=== PATIENT | male | born 1935 | race Caucasian/White ===

== ENCOUNTER 2019-06-01 01:37 | Inpatient (IN) | payer MEDICARE, BC ==
[~2019-06-01] VITALS: Ht 175.3 cm; Wt 73.3 kg
[2019-06-01 01:44] VITALS: BP 140/54
[2019-06-01] MEDS ORDERED: ATENOLOL 50MG T50 M1 PO (01:55)
[2019-06-01] MEDS ORDERED: COLACE100 MG PO (01:56)
[2019-06-01] MEDS ORDERED: AUGMENTIN 875-1 EACH PO (01:56)
[2019-06-01] MEDS ORDERED: MAGOX 400400 MG PO (01:57)
[2019-06-01] MEDS ORDERED: HYDROCHLOROTHIA25 M2 PO (01:57)
[2019-06-01] MEDS ORDERED: PEPCID20 MG PO (01:57)
[2019-06-01] MEDS ORDERED: QUINAPRIL 20 MG20 MG PO (01:58)
[2019-06-01] MEDS ORDERED: MIRALAX17 GM PO (01:58)
[2019-06-01 02:31] LABS: ABSOLUTE BASOPHILS 0.2 thou/uL (0.0-0.2); ABSOLUTE EOSINOPHILS 0.2 thou/uL (0.0-0.7); ABSOLUTE LYMPHOCYTES 1.3 thou/uL (0.8-5.3); ABSOLUTE MONOCYTES 0.9 thou/uL (0.0-1.2); ABSOLUTE NEUTROPHILS 5.9 thou/uL (1.6-8.1); BASOPHILS 2.2 %; EOSINOPHILS 1.8 %; HEMATOCRIT 38.2 % (42.0-52.0); HEMOGLOBIN 12.8 gm/dL (14.0-18.0); LYMPHOCYTES 15.1 %; MCH 34.1 pg (26.0-34.0); MCHC 33.6 g/dL (28.0-37.0); MCV 101.7 fL (80.0-100.0); MONOCYTES 10.4 %; MPV 7.2 fl. (7.2-11.1); NUCLEATED RBCS 0 /100WBC; PLATELET COUNT* 366 thou/uL (150-400); POLYS 70.5 %; RBC 3.75 mil/uL (4.50-6.00); RDW-CV 13.4 % (10.5-14.5); WBC 8.4 thou/uL (4.0-11.0)
[2019-06-01 02:38] LABS: CALCIUM 9.2 mg/dL (8.5-10.1); CREATININE 1.1 mg/dL (0.6-1.3); POTASSIUM 3.9 mmol/L (3.5-5.1)
[2019-06-01 02:42] LABS: ALBUMIN 3.1 g/dL (3.4-5.0); TOTAL BILIRUBIN 0.8 mg/dL (<0.1-1.0); TOTAL PROTEIN 7.1 g/dL (6.4-8.2)
[2019-06-01 02:52] LABS: BE 0.8 mmol/L (-2 to +3); PCO2 34.6 mmHg (35.0-45.0); PO2 88.3 mmHg (75.0-100.0); pH 7.462 (7.340-7.450)
[2019-06-01 04:55] VITALS: BP 124/62
[2019-06-01 05:02] LABS: INR 1.1; PROTIME 11.4 Seconds (9.20-11.50)
[2019-06-01 07:40] LABS: AMMONIA < 10 umol/L (11-32); CALCIUM 9.4 mg/dL (8.5-10.1); MAGNESIUM 1.8 mg/dL (1.8-2.4); PHOSPHORUS* 4.4 mg/dL (2.5-4.9)
[2019-06-01 08:00] VITALS: BP 109/38
--- NOTE | 2019-06-01 08:15 | NUR ---
RECEIVED REPORT FROM [facility]CO IN ED. PT ARRIVED TO UNIT APPROX 0515. VERY CONFUSED. OREINTED TO SELF AND "HOSPITAL." PT UNABLE TO ANSWER QUESTIONS OR ANSWERS QUESTIONS WITH "I WANT WHISKEY." PT KEPT TAKING OFF MONITOR LEADS. BED ALARM ON. CALL LIGHT IN REACH.
[2019-06-01 11:37] VITALS: BP 93/66
--- NOTE | 2019-06-01 11:51 | NUR ---
AT 0830 WENT IN TO DO PT VS AND PT WAS ATTEMPTING TO GET OUT OF BED ON HIS OWN, PT BELLIGERENT, CUSSING, AND PULLING AWAY FROM STAFF TRYING TO AMBULATE TO RESTROOM. PT OFFERED URINAL AND EXPLAINED THAT A URINE SAMPLE WAS NEEDED AND PT REFUSING AT THIS TIME TO USE URINAL FOR SAMPLE. PT INCONTINENT OF URINE AT THIS TIME. CIWA SCORE COMPLETED AND DOCUMENTED AND MEDICATIONS TO BE GIVEN. WILL CONTINUE TO MONITOR AND ASSESS
[2019-06-01 15:24] VITALS: BP 128/71
--- NOTE | 2019-06-01 18:12 | NUR ---
PT AFIB ON THE MONITOR TOLERATING RA AT THIS TIME. PT INCONTINENT OF BLADDER THIS SHIFT MULTIPLE TIMES. DR CAMPBELL ON UNIT AND GAVE VERBAL ORDER FOR ABD BINDER TO BE PLACED TO SECURE SHIN DRAIN, BINDER PLACED AND DRAIN SECURED. SHIN DRAIN SITE CDI AT THIS TIME. PT NPO AND REFUSING TO TAKE ANY PO MEDICATIONS AND IS SLEEPING A LOT, WITH CIWA SCORES RANGING FROM 6-17. IV ATIVAN BEING GIVEN THIS SHIFT FOR AGITATION AND AGGRESSION WITH STAFF FOR ANY INTERVENTIONS. HOURLY ROUNDING MAINTAINED THIS SHIFT. PT STILL REFUSING TO GIVE URINE SAMPLE AND HAS BEEN INCONTINENT SO NO SAMPLE HAS BEEN OBTAINED. BED ALARM AND FALL PXN IN PLACE AT THIS TIME. WILL CONTINUE TO MONITOR AND ASSESS
[2019-06-01 20:00] VITALS: BP 107/49
[2019-06-02] VITALS: BP 114/60
[2019-06-02 03:53] VITALS: BP 126/68
--- NOTE | 2019-06-02 06:36 | NUR ---
PT DISORIENTED X4 THIS SHIFT. VSS ON RA. PT OCCASSIONALLY TOOK OFF LEADS AND GOWN THIS SHIFT. I DID NOT WITNESS ANY AGRESSION OR COMBATIVENESS THIS SHIFT. PT WAS COOPERATIVE MOST OF SHIFT. EARLY IN THE SHIFT AVINASH (Send Word Now) SAID PT THREATENED TO HIT HER AND CALLED HER A "BITCH". NO ORDER AGGRESSIVENESS REPORTED BY ANY OTHER PERSON. MEDS GIVEN PER EMAR. ATIVAN GIVEN MULTIPLE TIMES THIS SHIFT. Q2 TURN. INCONTINENCE MONITOR. PT EXPRESSED BEING HUNGRY. EARLY THIS AM. NPO STATUS IN PLACE. WILL PASS ON TO DAYSHIFT. CALL LIGHT WITHIN REACH. HOURLY ROUNDINGS MADE. WILL CONTINUE TO MONITOR.
[2019-06-02 08:00] VITALS: BP 123/67
[2019-06-02 12:00] VITALS: BP 139/64
--- NOTE | 2019-06-02 15:24 | NUR ---
ASSUMED PT AT 0730. PT WAS CONFUSED AND COMPATIVE AND UNCOOPERATIVE WHEN TRYING TO TAKE VS. VSS AND CHARTED. PT IS A/O TO SELF. HE IS BELLIGERENT AND CONFUSED. PT CONT TO INCONTENT TO BLADDER. PT REMOVED A FEW LEADS FROM CHEST, AND REMOVED HIS IV. PT IS RESTING IN BED, WILL CONT TO MONITOR AND COMPLETE HOURLY ROUNDS, CALL LIGHT IN REACH.
[2019-06-02 16:00] VITALS: BP 132/63
[2019-06-02 20:00] VITALS: BP 127/46
[2019-06-03] VITALS (7 sets, daily range): BP systolic 87–129; BP diastolic 48–73
--- NOTE | 2019-06-03 03:44 | NUR ---
PT ALERT CONFUSED. ATTEMPTED TO GET OOB ONE TIME. TELEMETRY SHOWS AFIB. TURN Q 2 HRS.
[2019-06-03 05:15] LABS: CALCIUM 8.7 mg/dL (8.5-10.1); CREATININE 1.1 mg/dL (0.6-1.3); MAGNESIUM 1.8 mg/dL (1.8-2.4); PHOSPHORUS* 3.1 mg/dL (2.5-4.9); POTASSIUM 3.3 mmol/L (3.5-5.1)
--- NOTE | 2019-06-03 05:44 | NUR ---
PT TRYING TO GET OOB BECOMING AGGITATED. CIWA 13. LORAZEPAM IVP GIVEN. HR INCREASED TO 130S-160S. DR SENA NOTIFIED. CARDIOLOGY CONSULT AND CARDIZEM QTT ORDERED. CARDIZEM INFUSING AT 5MG/HR. HR NOW 102 WITH AFIB.
--- NOTE | 2019-06-03 06:49 | NUR ---
AM POTASSIUM 3.3. DR SENA NOTIFIED. ELECTROLYTE PROTOCAL ORDERED.
--- NOTE | 2019-06-03 08:36 | NUR ---
ASSUMED PT CARE AT 0730. PT NOTED TO BE RESTING IN BED BOTH EYES CLOSED. PT RESPONDS TO VERBAL STIMULATION. CARDIZM ON 5MG/HR RUNNING. VS AND ASSESSMENT DOCUMENTED IN CHART. WILL CONT HOURLY ROUNDS THIS SHIFT.
--- NOTE | 2019-06-03 10:53 | EKG ---
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1935 Requested By: Kenny Connolly Order Number: [id number] Danial MD: Kenny Connolly Measurements Intervals [place] Rate: 65 P: [place]: QRS: 45 QRSD: 117 T: -6 QT: 412 QTc: 429 Interpretive Statements Atrial fibrillation Nonspecific intraventricular conduction delay Borderline T abnormalities, inferior leads No previous ECG available for comparison Electronically Signed On 06-03-2019 10:53:33 CDT by Kenny Connolly [email or web address] <ELECTRONICALLY SIGNED> By: Kenny Connolly MD, [facility] 06/03/19 1053 0548 0548 Kenny Connolly MD, FACC /EPI
[2019-06-03 11:06] LABS: ABSOLUTE BASOPHILS 0.1 thou/uL (0.0-0.2); ABSOLUTE EOSINOPHILS 0.1 thou/uL (0.0-0.7); ABSOLUTE LYMPHOCYTES 1.3 thou/uL (0.8-5.3); ABSOLUTE NEUTROPHILS 5.9 thou/uL (1.6-8.1); BASOPHILS 1.4 %; EOSINOPHILS 1.7 %; HEMATOCRIT 36.6 % (42.0-52.0); HEMOGLOBIN 12.2 gm/dL (14.0-18.0); LYMPHOCYTES 15.4 %; MCH 34.4 pg (26.0-34.0); MCHC 33.3 g/dL (28.0-37.0); MCV 103.5 fL (80.0-100.0); MONOCYTES 12.1 %; MPV 7.8 fl. (7.2-11.1); NUCLEATED RBCS 0 /100WBC; PLATELET COUNT* 352 thou/uL (150-400); POLYS 69.4 %; RBC 3.54 mil/uL (4.50-6.00); RDW-CV 13.9 % (10.5-14.5); WBC 8.6 thou/uL (4.0-11.0)
--- NOTE | 2019-06-03 18:28 | NUR ---
PT VVS THIS SHIFT, MAINTAINED ON CARDIZM DRIP WITH NO/AVR. PT MAINTAINED COOPERATIVE DISPOSITION WITH [facility]. HOURLY ROUNDS DOCUMENTED IN CHART. 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 GRANDDAUGHTER AND VISITED WITH HIM TODAY. PT EDUCATED ON USE OF CALL LIGHT. CALL LIGHT IN REACH.
[2019-06-04] VITALS (51 sets, daily range): BP systolic 75–147; BP diastolic 44–74
--- NOTE | 2019-06-04 04:03 | NUR ---
INITAL ASSESSMENT PT DC IV IN L WRIST AND IV L AC INFFILTRATED. HOUSE SUPP CALLED TO START IV. CARDIZEM QTT NOW INFUSING IN R HAND. A SECOND IV IN L HAND FOR IV ABX. AM POTASSIUM 3.3. ORAL REPLACEMEMT GIVEN TONIGHT. RECHECK LAB THIS AM. TELEMETRY SHOWS AFIB 80S-90S. TYLENOL GIVEM FOR PAIN.
--- NOTE | 2019-06-04 08:26 | CON ---
[address] [address] CONSULTATION Name: LYUDMILA MEHTA Room: [address] IN M.R.#: [id number] Admission: 06/01/19 Attend Phys: Cony Rushing MD Discharge: Date of : 39 Report #: [id number] THIS REPORT FOR: //name// CC: WENDY physician/PCP Cony Rushing DATE OF SERVICE: 06/03/2019 HISTORY OF PRESENT ILLNESS: The patient is an 84-year-old white male who I was asked to see in the hospital today because of atrial fibrillation. Unfortunately, no family member is available. The patient is awake, but has not answered a lot of questions. He is basically bedridden. The patient was admitted here to [facility] 2 days ago. He was brought by private vehicle. He was just recently admitted to [facility] with acute cholecystitis. He was felt to be too high risk for surgery. A cholecystostomy tube was placed. There was infected gallbladder fluid drainage with Escherichia coli. He has confusion and agitation. He is uncooperative. He has a history of alcohol abuse. He was admitted here in May with abdominal pain. He was found to have acute cholecystitis. He was not felt to be an operative candidate. The cholecystostomy tube was placed and the fluid grew E. coli. He was treated with antibiotics. Echocardiogram showed a normal ejection fraction, left ventricular hypertrophy, left atrial enlargement, severe aortic stenosis, pulmonary hypertension. The patient was confused, combative, required sedation. CT scan of the head did not show any acute abnormalities. The patient was stable and was transferred to a longterm facility. The patient was just taken to longterm facility 3 days ago. There he was more confused. The patient refused to go back to [facility]. He was brought here to [facility]. His biliary drain apparently had fallen out. The patient denies any significant complaints. PAST MEDICAL HISTORY: Rotator cuff surgery, hemorrhoidectomy, cataract extraction, previous angioplasty and atherectomy of the right lower extremity. He has a history of atrial fibrillation. SOCIAL HISTORY: He is a former smoker, has a history of alcohol abuse. His primary care physician, Dr. Tristan Yu. FAMILY HISTORY: Negative heart disease. REVIEW OF SYSTEMS: There is no history of stroke, asthma, liver disease, kidney disease or cancer. PHYSICAL EXAMINATION: GENERAL: Revealed an elderly male, lying in bed, appeared in no acute distress. VITAL SIGNS: He had a blood pressure of 130/70, pulse is 100. He is afebrile. HEENT: He was anicteric. Conjunctivae pink. [place] [address] CONSULTATION Name: LYUDMILA MEHTA Room: [address] IN M.R.#: [id number] Admission: 06/01/19 Attend Phys: Cony Rushing MD Discharge: Date of : 39 Report #: [id number] NECK: Veins do not appear distended. CHEST: Clear to auscultation. CARDIOVASCULAR: Regular rate and rhythm, grade 2 systolic ejection murmur. ABDOMEN: Soft. EXTREMITIES: Had no edema. SKIN: Warm and dry. NEUROLOGIC: Nonfocal. RADIOLOGICAL DATA: His ECG showed atrial fibrillation with an increased ventricular response rate. No significant ST or T-wave change. Workup in the Emergency Room; CT scan of the head showed atrophy, white matter changes. LABORATORY DATA: Sodium 140, potassium 3.3, creatinine 1.1. Liver function studies were normal. Albumin 3.1. TSH 4.8. White blood cell count 8.4, hemoglobin 12.8. IMPRESSION AND RECOMMENDATIONS: 1. Chronic atrial fibrillation. The patient does not appear to be a very good candidate for anticoagulation. He has been on atenolol for rate control. 2. Dementia. The patient has been in this new bed. 3. Severe aortic stenosis. The patient not an operative candidate. 4. Recent episode of cholecystitis. The patient has a biliary drain in place. 5. History of alcohol abuse. 6. Previous tobacco abuse. <ELECTRONICALLY SIGNED> By: Kenny Connolly MD, [facility] 06/04/19 0826 0828 1100David Milena Connolly MD, FACC /nt
--- NOTE | 2019-06-04 11:33 | EKG ---
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
--- NOTE | 2019-06-04 11:45 | NUR ---
cm completed initial assessment. pt alert and oriented x0. pt's auth contact, Narcisa dunn and her spouse and pt's sister present at time of assessment. pt "walked out of [facility] on Monday." granddtr plans to tour [facility]" as she feels he needs a locked unit d/t elopment risk. cm stated she would provide add'l facility options; however, pt coded and being moved to ICU to be intubated. pt has no hx w/HH. SNF @ [facility] about 2 y/a. pt lived at home alone prior to recent move, Narcisa checked in on him often and "helped him out" as needed. cm to continue to follow pt to assist as needed.
--- NOTE | 2019-06-04 11:50 | NUR ---
ASSUMED PT CARE AT 0800, PT COMBATIVE, CONFUSED. TRACING AFIB, TACH ON TELE MONITOR. PT ON CARDIZEM DRIP. AROUND 1140, NOTICED PT STARTED RUNNING V TACH. CHECK HIM ON THE ROOM, PT START TO CODE. CODE BLUE ACTIVATED. PT TRANSFERED TO ICU. GIVE REPORT TO LOREN.
[2019-06-04 12:03] LABS: ABSOLUTE BASOPHILS 0.2 thou/uL (0.0-0.2); ABSOLUTE LYMPHOCYTES 2.7 thou/uL (0.8-5.3); ABSOLUTE NEUTROPHILS 11.7 thou/uL (1.6-8.1); BASOPHILS 1.1 %; EOSINOPHILS 0.3 %; HEMOGLOBIN 12.5 gm/dL (14.0-18.0); LYMPHOCYTES 17.4 %; MCH 34.4 pg (26.0-34.0); MCHC 32.9 g/dL (28.0-37.0); MCV 104.3 fL (80.0-100.0); MONOCYTES 6.3 %; MPV 7.5 fl. (7.2-11.1); NUCLEATED RBCS 0 /100WBC; PLATELET COUNT* 370 thou/uL (150-400); POLYS 74.9 %; RBC 3.65 mil/uL (4.50-6.00); RDW-CV 13.7 % (10.5-14.5); WBC 15.6 thou/uL (4.0-11.0)
[2019-06-04 12:08] LABS: CALCIUM 8.5 mg/dL (8.5-10.1); CREATININE 1.3 mg/dL (0.6-1.3); POTASSIUM 3.9 mmol/L (3.5-5.1)
[2019-06-04 12:16] LABS: BE -6.7 mmol/L (-2 to +3); PCO2 36.4 mmHg (35.0-45.0); pH 7.325 (7.340-7.450)
[2019-06-04 12:19] LABS: PO2 329.8 mmHg (75.0-100.0)
[2019-06-04 12:19] LABS: MAGNESIUM 2.2 mg/dL (1.8-2.4)
[2019-06-04 12:20] LABS: TROPONIN-I LEVEL 1.76 ng/mL (<0.06)
[2019-06-04 12:29] LABS: APTT 34.8 Seconds (25.0-31.3); INR 1.2; PROTIME 12.4 Seconds (9.20-11.50)
--- NOTE | 2019-06-04 16:24 | 2DMMODE ---
[place] [address] 2 D/M-MODE ECHOCARDIOGRAM Name: LYUDMILA MEHTA Room: [address] IN [facility]#: [id number] Admission: 06/01/19 Attend Phys: Cony Rushing, Discharge: Date of : 39 Date of Service: 06/04/19 1624 Report #: [id number] THIS REPORT FOR: //name// APPROVED REPORT Study performed: 06/04/2019 14:54:48 EXAM: Comprehensive 2D, Doppler, and color-flow Echocardiogram Patient Location: In-Patient Room #: [facility] Status: routine BSA: 1.93 HR: 136 bpm BP: 93/54 mmHg Rhythm: NSR Other Information Study Quality: Good Indications cardiac arrest 2D Dimensions IVSd: 9.87 (7-11mm) LVOT Diam: 21.90 (18-24mm) LVDd: 59.92 mm PWd: 7.22 (7-11mm) Ascending Ao: 32.38 (22-36mm) LVDs: 50.68 (25-40mm) Aortic Root: 32.73 mm Volumes Left Atrial Volume (Systole) LA ESV Index: 34.50 mL/m2 Aortic Valve AoV Peak Benjy.: 2.82 m/s AO Peak Gr.: 31.78 mmHg LVOT Max P.20 mmHg AO Mean Gr.: 18.66 mmHg LVOT Mean P.67 mmHg LVOT Max V: 0.55 m/s AO V2 VTI: 43.15 cm LVOT Mean V: 0.39 m/s ANA (VTI): 0.74 cm2 LVOT V1 VTI: 8.44 cm TDI Medial E' Benjy.: 0.10 m/s Lateral E' Benjy.: 0.13 m/[place] [address] 2 D/M-MODE ECHOCARDIOGRAM Name: LYUDMILA MEHTA Room: [address] IN ..#: [id number] Admission: 06/01/19 Attend Phys: Cony Rushing, Discharge: Date of : 39 Date of Service: 06/04/19 1624 Report #: [id number] Pulmonary Valve PV Peak Benjy.: 0.66 m/s PV Peak Gr.: 1.72 mmHg Tricuspid Valve RAP Estimate: 10.00 mmHg TR Peak Gr.: 41.33 mmHg RVSP: 51.00 mmHg PA Pressure: 51.00 mmHg Left Ventricle Left ventricle is mildly dilated. There is severe global hypokinesis with akinesis of the apex mid to distal septum mid to distal anterior wall and distal lateral wall. There is normal left ventricular wall thickness. Left ventricular systolic function is severely decreased. LVEF is 20-25%. This study is not technically sufficient to allow evaluation of the LV diastolic function due to atrial fibrillation. Right Ventricle The right ventricle is normal size. The right ventricular systolic function is normal. Atria Left atrium is mildly dilated. The right atrium size is normal. Aortic Valve Severe aortic valve sclerosis. Trace aortic regurgitation. Severe aortic stenosis. Mitral Valve There is mitral annular calcification. Mild mitral regurgitation. No evidence of mitral valve stenosis. Tricuspid Valve The tricuspid valve is normal in structure. There is no tricuspid valve regurgitation noted. Moderate pulmonary hypertension. Pulmonic Valve The pulmonary valve is normal in structure. Trace pulmonic regurgitation. Great Vessels The aortic root is normal in size. IVC is dilated and collapses <50% with [place] [address] 2 D/M-MODE ECHOCARDIOGRAM Name: LYUDMILA MEHTA Room: [address] IN [facility]#: [id number] Admission: 06/01/19 Attend Phys: Cony Rushing, Discharge: Date of : 39 Date of Service: 06/04/19 1624 Report #: [id number] There is no pericardial effusion. <Conclusion> Left ventricle is mildly dilated. There is normal left ventricular wall thickness. Left ventricular systolic function is severely decreased. LVEF is 20-25%. There is severe global hypokinesis with akinesis of the apex mid to distal septum mid to distal anterior wall and distal lateral wall. Left atrium is mildly dilated. Severe aortic valve sclerosis. Trace aortic regurgitation. Severe aortic stenosis. There is mitral annular calcification. Mild mitral regurgitation. There is no tricuspid valve regurgitation noted. Moderate pulmonary hypertension. Trace pulmonic regurgitation. IVC is dilated and collapses <50% with inspiration. <ELECTRONICALLY SIGNED> By: Andrés Phillips MD, FACC 06/04/19 1624 1624 1624 Andrés Phillips MD, FACC /INF
--- NOTE | 2019-06-04 16:32 | NUR ---
PT TRANSFERRED TO ICU AROUND 1145 POST RESUSCITATION MEASURES ON TELE UNIT. THIS NURSE TOOK REPORT ON PATIENT AROUND 1230. HOSPITALISTS, CARDIOLOGY, PULMONOLOGY AT BEDSIDE. DISCUSSED PLAN OF CARE WITH DPOA AND DPOA VERBALIZES PT WISHES TO BE DNR. ORDER OBTAINED FROM PHYSICIAN. DPOA STATES TO CONTINUE WITH CARE INDICATED/ NECESSARY AT THIS TIME. PT INTUBATED WITH VERSED FOR SEDATION. ROBLERO IN DD POSITION. HEART RHYTHM CONTINUES IN AFIB TACHYCARDIC. IV METOPROLOL MOST EFFECTIVE WITH RATE MANAGEMENT AT THIS TIME. B/P SOFT WITH NO PRESSORS NEEDED AT THIS TIME. CENTRAL LINE ACCESS OBTAINED. ECHO COMPLETED. REFER TO RESULTS. SURGERY CONSULTED AND CT ABDOMEN ORDERS OBTAINED. UNABLE TO COMPLETE AT THIS TIME D/T PT HEMODYNAMIC STABILITY. WILL REASSESS. ID CONSULTED. FAMILY AT BEDSIDE AND UPDATED ON PLAN OF CARE. NO OTHER CONCERNS AT THIS TIME. CLWR. WCTM.
--- NOTE | 2019-06-04 17:05 | NUR ---
SPOKE WITH DR LLANOS AND DR SHIPMAN. SEE DR ESCALANTE ORDER. NO NEW ORDERS FROM DR SHIPMAN WILL SEE PATIENT IN AM.
[2019-06-04 17:55] LABS: ABSOLUTE BASOPHILS 0.2 thou/uL (0.0-0.2); ABSOLUTE LYMPHOCYTES 1.4 thou/uL (0.8-5.3); ABSOLUTE MONOCYTES 1.6 thou/uL (0.0-1.2); ABSOLUTE NEUTROPHILS 14.9 thou/uL (1.6-8.1); BASOPHILS 1.1 %; HEMATOCRIT 35.2 % (42.0-52.0); HEMOGLOBIN 11.6 gm/dL (14.0-18.0); LYMPHOCYTES 7.5 %; MCH 33.8 pg (26.0-34.0); MCV 102.3 fL (80.0-100.0); MPV 7.8 fl. (7.2-11.1); NUCLEATED RBCS 0 /100WBC; PLATELET COUNT* 348 thou/uL (150-400); POLYS 82.4 %; RBC 3.44 mil/uL (4.50-6.00); RDW-CV 13.4 % (10.5-14.5); WBC 18.1 thou/uL (4.0-11.0)
[2019-06-04 18:14] LABS: AMP/METHAMP Negative (Negative); BARBITURATES Negative (Negative); BENZODIAZEPINES POSITIVE (Negative); COCAINE Negative (Negative); METHADONE Negative (Negative); OPIATES Negative (Negative); PCP Negative (Negative); THC Negative (Negative)
[2019-06-04 18:25] LABS: CALCIUM 8.1 mg/dL (8.5-10.1); CREATININE 1.5 mg/dL (0.6-1.3); MAGNESIUM 1.8 mg/dL (1.8-2.4); PHOSPHORUS* 2.8 mg/dL (2.5-4.9); POTASSIUM 4.1 mmol/L (3.5-5.1)
[2019-06-04 18:28] LABS: APTT 35.7 Seconds (25.0-31.3); INR 1.3; PROTIME 12.8 Seconds (9.20-11.50)
[2019-06-05] VITALS (38 sets, daily range): BP systolic 83–125; BP diastolic 48–72
[2019-06-05 01:18] LABS: ABSOLUTE BASOPHILS 0.1 thou/uL (0.0-0.2); ABSOLUTE LYMPHOCYTES 1.3 thou/uL (0.8-5.3); ABSOLUTE MONOCYTES 1.9 thou/uL (0.0-1.2); ABSOLUTE NEUTROPHILS 14.7 thou/uL (1.6-8.1); BASOPHILS 0.7 %; EOSINOPHILS 0.1 %; HEMATOCRIT 36.6 % (42.0-52.0); HEMOGLOBIN 12.2 gm/dL (14.0-18.0); LYMPHOCYTES 7.3 %; MCH 34.2 pg (26.0-34.0); MCHC 33.4 g/dL (28.0-37.0); MCV 102.4 fL (80.0-100.0); MONOCYTES 10.5 %; MPV 7.7 fl. (7.2-11.1); NUCLEATED RBCS 0 /100WBC; PLATELET COUNT* 372 thou/uL (150-400); POLYS 81.4 %; RBC 3.57 mil/uL (4.50-6.00); RDW-CV 13.4 % (10.5-14.5); WBC 18.1 thou/uL (4.0-11.0)
[2019-06-05 01:41] LABS: ANION GAP 10 mmol/L (7-16); BUN 12 mg/dL (7-18); CALCIUM 8.6 mg/dL (8.5-10.1); CHLORIDE 104 mmol/L (98-107); CO2 24 mmol/L (21-32); CREATININE 1.7 mg/dL (0.6-1.3); GLUCOSE 101 mg/dL (70-99); MAGNESIUM 1.7 mg/dL (1.8-2.4); NT-PRO BRAIN NAT PEPTIDE > 35000 pg/mL (<300); PHOSPHORUS* 3.2 mg/dL (2.5-4.9); POTASSIUM 4.4 mmol/L (3.5-5.1); SODIUM 138 mmol/L (136-145)
[2019-06-05 02:32] LABS: APTT 34.8 Seconds (25.0-31.3); INR 1.3; PROTIME 13.1 Seconds (9.20-11.50)
[2019-06-05 04:00] LABS: BE -3.7 mmol/L (-2 to +3); PCO2 28.2 mmHg (35.0-45.0); PO2 82.5 mmHg (75.0-100.0); pH 7.445 (7.340-7.450)
[2019-06-05 04:09] LABS: ABSOLUTE BASOPHILS 0.1 thou/uL (0.0-0.2); ABSOLUTE LYMPHOCYTES 1.5 thou/uL (0.8-5.3); ABSOLUTE NEUTROPHILS 15.5 thou/uL (1.6-8.1); BASOPHILS 0.8 %; EOSINOPHILS 0.1 %; HEMATOCRIT 36.9 % (42.0-52.0); HEMOGLOBIN 12.2 gm/dL (14.0-18.0); LYMPHOCYTES 7.8 %; MCH 33.7 pg (26.0-34.0); MCHC 33.1 g/dL (28.0-37.0); MCV 101.8 fL (80.0-100.0); MONOCYTES 10.3 %; NUCLEATED RBCS 0 /100WBC; PLATELET COUNT* 391 thou/uL (150-400); RBC 3.63 mil/uL (4.50-6.00); RDW-CV 14.2 % (10.5-14.5); WBC 19.1 thou/uL (4.0-11.0)
[2019-06-05 04:32] LABS: ANION GAP 13 mmol/L (7-16); BUN 12 mg/dL (7-18); CALCIUM 8.7 mg/dL (8.5-10.1); CHLORIDE 104 mmol/L (98-107); CO2 23 mmol/L (21-32); CREATININE 1.7 mg/dL (0.6-1.3); GLUCOSE 103 mg/dL (70-99); MAGNESIUM 1.8 mg/dL (1.8-2.4); NT-PRO BRAIN NAT PEPTIDE > 35000 pg/mL (<300); POTASSIUM 4.3 mmol/L (3.5-5.1); SODIUM 140 mmol/L (136-145)
[2019-06-05 04:41] LABS: APTT 34.8 Seconds (25.0-31.3); INR 1.3; PROTIME 12.8 Seconds (9.20-11.50)
[2019-06-05 07:42] LABS: ALBUMIN 2.4 g/dL (3.4-5.0); DIRECT BILIRUBIN 0.2 mg/dL (<0.1-0.3); TOTAL BILIRUBIN 0.8 mg/dL (<0.1-1.0); TOTAL PROTEIN 6.5 g/dL (6.4-8.2)
--- NOTE | 2019-06-05 11:11 | CON ---
[address] [address] CONSULTATION Name: LYUDMILA MEHTA Room: [address] IN .R.#: [id number] Admission: 06/01/19 Attend Phys: Cony Rushing MD Discharge: Date of : 39 Report #: [id number] THIS REPORT FOR: //name// CC: [facility]END[facility] physician/PCP Cony Rushing DATE OF SERVICE: 06/04/2019 NEW PATIENT EVALUATION REASON FOR EVALUATION: Acute respiratory failure. REFERRING PHYSICIAN: Dr. Bell. HISTORY OF PRESENT ILLNESS: This patient is an 84-year-old gentleman who initially was admitted with confusion and atrial fibrillation. Apparently, there were concerns for alcohol withdrawal. The patient was recently hospitalized at [facility] for acute cholecystitis, had a drain placed with E. coli infection. Initially treated with Ativan, had issues with atrial fibrillation. Today, the patient had atrial fibrillation with rapid ventricular response. Synchronized cardioversion was being planned in process. However, the patient had a cardiac arrest with ventricular tachycardia and ventricular fibrillation. The patient had shock with return of spontaneous circulation. At this time, he is intubated. Code ice was planned; however, the patient apparently woke up and was more arousable and it was canceled, currently on the ventilator. Not able to obtain further history. PAST MEDICAL HISTORY: He had hypertension, severe aortic stenosis, biliary drain. PAST SURGICAL HISTORY: Rotator cuff surgery, hemorrhoidectomy, cataract extraction, previous angioplasty. SOCIAL HISTORY: Former smoker, history of alcohol abuse. FAMILY HISTORY: Negative for heart disease. REVIEW OF SYSTEMS: A 14-point review of systems otherwise as above. The patient is intubated and sedated. He is on propofol. PHYSICAL EXAMINATION: VITAL SIGNS: He is currently afebrile, blood pressure is 93/54. His pulse has been increased to 140. Currently, it is ranging 110 to 130, currently on Cardizem. Pulse oximetry is 96%. HEAD AND NECK: Supple. Eyes nonicteric. CHEST: Clear [place] [address] CONSULTATION Name: TEREZABRYANLYUDMILA Sofía Room: [address] IN [facility]#: [id number] Admission: 06/01/19 Attend Phys: Cony Rushing MD Discharge: Date of : 39 Report #: [id number] CARDIOVASCULAR: Regular rhythm. ABDOMEN: Soft, nontender. EXTREMITIES: Trace edema. Pulses were equal. NEUROLOGIC/PSYCHIATRIC: Unable to evaluate. LABORATORY AND OTHER DATABASE: I have reviewed his chest x-ray, which shows ET tube in good position. He has mild pulmonary vascular congestion, probable left. He has also basilar infiltrate, which has increased, especially in the left lower lobe. White blood cell count has increased to 15.6, hemoglobin 12.5, and his platelet is 370, increased neutrophils. Chemistry; his lactic acid is 5.4. Troponin is 1.7. Arterial blood gas today 7.3, pCO2 of 36, pO2 329, this is after intubation after his cardiac arrest. This is on AC mode, rate of 16, FiO2 of 100, tidal volume 500 and PEEP of 5. ASSESSMENT AND PLAN: 1. The patient post-cardiac arrest with ventricular fibrillation and ventricular tachycardia, currently had return of circulation, has been intubated. Suspect his cardiac arrest is cardiac in etiology. Known to have severe aortic stenosis. At this time, he is currently on Cardizem. We will continue sedation. He is on Versed. We will add Precedex. 2. Acute respiratory failure. At this time, he has adequate gas exchange, has worse left lower lobe infiltrate. Suspect effusion versus infiltrate with leukocytosis. We will add empiric antibiotics with Zosyn and vancomycin. Obtain sputum cultures. 3. Lactic acidosis, likely post-arrest. He is on antibiotics as well. 4. Atrial fibrillation. We will defer to Cardiology. He has also associated elevated troponin, had cardiac arrest, currently on Cardizem, sedation as above. We will add fentanyl for pain control as well to be used intermittently as needed. This was discussed with nursing in detail. We will attempt to start weaning process tomorrow. Total critical care time with the patient's care was 38 minutes. <ELECTRONICALLY SIGNED> By: Melvi Campos MD 06/05/19 1111 1355 2150Melvi Campos MD /nt
--- NOTE | 2019-06-05 15:59 | NUR ---
PATIENT EXTUBATED AT 1332 REMAINS [facility] FAMILY AT BEDSIDE. DR ERICKSON INFORMED ALSO PULOMONARY AND CARDIOLOGY.
--- NOTE | 2019-06-05 22:01 | NUR ---
REPORT GIVEN TO RN. QUESTIONS DENIED. PT. CURRENTLY COMFORT CARE. FAMILY IN ROOM WITH PT, UPDATED ON TRANSFER TO ROOM 118. [facility]TER[facility] HERE TO PICK PT. UP AT THIS TIME, TRANSFERRED TO 118 AT 2155.
[2019-06-06 00:09] VITALS: BP 122/59
[2019-06-06 04:20] VITALS: BP 102/58
[2019-06-06 04:45] LABS: HEMATOCRIT 39.1 % (42.0-52.0); HEMOGLOBIN 12.7 gm/dL (14.0-18.0); MCH 33.4 pg (26.0-34.0); MCHC 32.4 g/dL (28.0-37.0); MCV 102.9 fL (80.0-100.0); MPV 8.9 fl. (7.2-11.1); NUCLEATED RBCS 0 /100WBC; PLATELET COUNT* 333 thou/uL (150-400); RBC 3.81 mil/uL (4.50-6.00); WBC 27.6 thou/uL (4.0-11.0)
[2019-06-06 05:01] LABS: PREALBUMIN 8.1 mg/dL (18.0-35.7)
[2019-06-06 05:06] LABS: ALBUMIN 2.2 g/dL (3.4-5.0); CALCIUM 8.7 mg/dL (8.5-10.1); CREATININE 2.2 mg/dL (0.6-1.3); POTASSIUM 4.4 mmol/L (3.5-5.1); TOTAL BILIRUBIN 0.7 mg/dL (<0.1-1.0); TOTAL PROTEIN 6.4 g/dL (6.4-8.2)
[2019-06-06 05:44] LABS: ABSOLUTE LYMPHOCYTES 1.9 thou/uL (0.8-5.3); ABSOLUTE MONOCYTES 2.8 thou/uL (0.0-1.2); ABSOLUTE NEUTROPHILS 22.9 thou/uL (1.6-8.1); ANISOCYTOSIS 1+; PLATELET ESTIMATE ADEQUATE; POIKILOCYTOSIS 1+
--- NOTE | 2019-06-06 06:06 | NUR ---
PATIENT TRANSFERRED 220 ON UNIT. FULL COMFORT CARE. FENTANYL DRIP 25MCG/HR. LAST VITALS AT 0400 BP 102/25 HR 92 RR 19 O2 92% ON 2L AND TEMP 99.1. PATIENT TURNED Q2 AND BREAKDOWN PREVENTION MAINTAINED. IS ON 2L OXYGEN AND WILL CONTINUE TO MONITOR.
--- NOTE | 2019-06-06 09:35 | NUR ---
WHEN ROUNDING ON PATIENT AT 0845, NO RESPIRATIONS WERE NOTED. NO HEART SOUNDS HEAR UPON OSCULTATION, DR BARCENAS ON UNIT AND I ASKED HIM TO VERIFY. ERICA NOTED.
--- NOTE | 2019-06-06 12:03 | NUR ---
PATIENT PICKED UP BY [facility] AT 1045.
--- NOTE | 2019-06-06 12:10 | CON ---
[address] [address] CONSULTATION Name: TYSONLYUDMILA J Room: [address] IN M.R.#: [id number] Admission: 06/01/19 Attend Phys: Cony Rushing MD Discharge: 06/06/19 Date of : 39 Report #: [id number] THIS REPORT FOR: //name// CC: [facility] physician/PCP Cony Rushing DATE OF SERVICE: 06/05/2019 INFECTIOUS DISEASE CONSULTATION ATTENDING PHYSICIAN: Dr. Tan. REASON FOR EVALUATION: Sepsis with multiorgan failure, is maintained on ventilatory support. HISTORY OF PRESENT ILLNESS: Chart reviewed, patient examined. This is an 84-year-old with extensive medical history, has known vasculopathy, has severe aortic stenosis, who was admitted to an outside facility, and was diagnosed with acute cholecystitis. Due to the severity of his underlying medical disease burden, he was felt to be a poor surgical candidate. Did have a cholecystostomy tube placed. He was treated several days including antimicrobials, was discharged to a facility to optimize his nutritional status, and ideally a previous surgical candidacy. He, however, left there, became more encephalopathic, was admitted via the Emergency Room at [facility] with perhaps volume overload, evidence seems to favor acute myocardial infarction. He did deteriorate. He is ultimately intubated. Now, he is in Intensive Care Unit. At this point, he is not responsive. He notable has a history of ethanol excess. He has required pressor support. Blood cultures were collected on a couple different occasions, on as well as 06/04, otherwise unrevealing. Sputum and urine cultures collected in the last 24 hours, pending results. He was placed on combination antimicrobial therapy with piperacillin, tazobactam, as well as vancomycin. Echo noted severe aortic stenosis and poor ejection fraction of 20-25% range. ALLERGIES: None known. MEDICATIONS: Currently include atenolol, thiamine, folate, vancomycin, famotidine, amiodarone, Zosyn. He is on Arndell-Synephrine as well as Versed. PAST MEDICAL HISTORY: As described above, has known vasculopathy, hypertension, aortic valve stenosis, acute cholecystitis with cholecystostomy tube. SOCIAL HISTORY: Nonsmoker. No illicit drug use. Daily ethanol. FAMILY HISTORY: [place] [address] CONSULTATION Name: LYUDMILA MEHTA Room: [address]#: [id number] Admission: 06/01/19 Attend Phys: Cony Rushing MD Discharge: 06/06/19 Date of : 39 Report #: [id number] REVIEW OF SYSTEMS: Not obtainable. PHYSICAL EXAMINATION: GENERAL: He appears chronically ill, undernourished. He is supine. He is intubated, bilateral central catheters, neck, ET and OG tube in place. VITAL SIGNS: Temperature 98, pulse 84, respirations 45, blood pressure 105/48. SKIN: Warm. He is pale. HEENT: Normocephalic. NECK: Appears to be supple. LUNGS: Scattered coarse breath sounds, diminished. HEART: Distant, regular with ectopy, has a systolic murmur. ABDOMEN: Mildly distended, soft. There are no overt peritoneal signs. EXTREMITIES: Distal lower extremities have degree of edema. GENITOURINARY AND RECTAL: Deferred. LABORATORY DATA: CT abdomen and pelvis: All small moderate bilateral pleural effusions, decompressed gallbladder, sigmoid and descending colon diverticulosis without evidence of diverticulitis, compression fracture deformity of L3 vertebral body. Blood cultures: Sterile thus far. Hepatic panel: AST of 151, ALT 48, total bilirubin of 0.8, albumin 2.4, total protein 6.5. Troponin level: Elevated at 32.16. Electrolytes: Sodium 140, potassium 4.3, chloride 104, bicarbonate is 23, anion gap of 13, BUN and creatinine 12 and 1.7. Estimated GFR 39. CBC: White count of 19.1, H and H 12.2 and 36.9, platelets of 391, and a monocytosis of 2000. Most recent ABG: pH 7.445, pCO2 of 22, pO2 of 82.5, FiO2 of 30%, assist control with rate of 16. ASSESSMENT: Pneumonitis, complicated by respiratory failure, post-code, is not overtly evident if there is a focus of pyogenic infection. He likely had cholecystitis based on the available information. Certainly at risk for aspiration with pneumonitis. Continue combination therapy with vancomycin as well as piperacillin and tazobactam. Clearly, ischemic cardiac event may be a significant contributing factor at this point as well as the underlying severe aortic stenosis, also concern about possible withdrawal, close to monitor expectantly, wean as allowed. We will await culture results. <ELECTRONICALLY SIGNED> By: Mason Morton MD 06/06/19 1210 [id number] Morton MD /nt
--- NOTE | 2019-06-07 08:11 | NUR ---
entered onto restraint log 06/07/19.
--- NOTE | 2019-06-08 16:06 | CON ---
[address] [address] CONSULTATION Name: TEREZABRYANLYUDMILA J Room: [address] IN M.R.#: [id number] Admission: 06/01/19 Attend Phys: Cony Rushing MD Discharge: 06/06/19 Date of : 39 Report #: [id number] THIS REPORT FOR: //name// CC: Alfredo Limon MD [facility] physician/PCP Jesús Geronimo MD DATE OF SERVICE: 06/01/2019 GASTROENTEROLOGY CONSULTATION REFERRING PHYSICIAN: Cony Rushing MD REASON FOR CONSULTATION: Biliary drain. IMPRESSION: 1. Acute cholecystitis requiring percutaneous cholecystostomy tube that was placed by Interventional Radiology at [facility] on 05/24 -- the patient deemed not to be a surgical candidate due to his critical aortic stenosis. 2. Critical aortic stenosis with aortic valve area of 0.54 cm2 with preserved LV function. 3. Chronic alcohol abuse without any evidence to suggest decompensated liver disease. 4. Confusion and delirium -- evaluate for alcohol withdrawal versus underlying dementia and/or both. 5. Macrocytic anemia secondary to chronic alcohol abuse. RECOMMENDATIONS: 1. We would continue the patient on IV antibiotics for his E. coli bacteremia due to #1 above. 2. I have no other recommendations for this patient, may or may not even be able to get his gallbladder removed. In reviewing his medical records from [facility], he is combative and likes to drink his alcohol. While he was seen in consultation by Cardiology, it remains to be seen whether or not he would ever be a candidate for a TAVR due to his noncompliant attitude and his dare to continue to drink. 3. If he needs any further input regarding this patient's care, you need to consult Dr. Alfredo Limon, he would be the one to follow the patient. 4. I have copied and placed records from his hospital stay at [facility] on the front of the patient's paper chart. We will hold off on [phone] CONSULTATION Name: LYUDMILA MEHTA Room: [address] IN M.R.#: [id number] Admission: 06/01/19 Attend Phys: Cony Rushing MD Discharge: 06/06/19 Date of : 39 Report #: [id number] HISTORY OF PRESENT ILLNESS: The patient is an 84-year-old white male who was recently hospitalized at [facility] for symptomatic biliary tract disease, but felt to not be a candidate for surgical intervention secondary to critical aortic stenosis. For this reason, a percutaneous drain was placed within the gallbladder for purposes of draining. This was done by Interventional Radiology on 05/24. He was hospitalized until the and then sent to rehab facility, but left there because he wanted to leave and go drink again. He subsequently was taken home by his family member and began drinking again. He is now admitted to the hospital here because of problems with confusion and pain. He is currently not awake. He does not appear to be in any distress. He has a cholecystostomy tube in place. ALLERGIES: None. MEDICATIONS: At home include atenolol, Augmentin, docusate sodium, famotidine, hydrochlorothiazide, magnesium oxide, polyethylene glycol, and quinapril. PAST MEDICAL AND SURGICAL HISTORY: Remarkable for underlying hypertension, critical aortic stenosis. He has had history of chronic alcohol abuse, chronic acid reflux. SOCIAL HISTORY: The patient is a former smoker, previously smoked less, and quit smoking greater than a year ago. He does drink alcohol and he is "was as much as I can get my hands on." FAMILY HISTORY: Not taken. PHYSICAL EXAMINATION: GENERAL: Revealed a disheveled 84-year-old white male who is in no distress. CARDIOPULMONARY: Revealed a regular rate and rhythm. LUNGS: Clear. ABDOMEN: Soft. He has got a drain into his gallbladder with bilious drainage. There did not appear to be any purulence to the same. His abdomen is soft and he is not wincing on physical examination. LABORATORY DATA: From admission revealed white count of 8.4, hemoglobin 12.8, platelet count 366,000, MCV is 101.7, and RDW 13.4. His sodium is 137, potassium 3.9, chloride 99, bicarbonate is 26, his BUN is 9, and creatinine is 1.1. His GFR is 64. His total bilirubin 0.8, alkaline phosphatase is 72, AST is 16, and ALT 21. His albumin is 3.1. His protime is 11.4 with an INR of 1.1. DISCUSSION: At the present time, the patient has major issues with heart disease and now has issues related to his biliary tract. He is not a surgical candidate at this time and will need to be treated symptomatically for his E. coli bacteremia with Augmentin or something similar to that for another 7-10 days. He will need to follow up with Cardiology as directed and he is [address] [address] CONSULTATION Name: LYUDMILA MEHTA Room: [address] IN M.R.#: [id number] Admission: 06/01/19 Attend Phys: Cony Rushing MD Discharge: 06/06/19 Date of : 39 Report #: [id number] absolutely positively stop drinking so that he can eventually possibly get surgery down the road. There is nothing that we can do for him other than him listening to what we have to say. At the present time, he is not having anything. <ELECTRONICALLY SIGNED> By: Evelio Ruiz DO 06/08/19 1606 [id number] Ruiz DO /nt
== END 2019-06-06 08:45 | DRG 871 ==
LOC: M.ERS 01:37 → M.ICU 03:44 → M.2W 03:44 → M.ORTHSURG 03:44 → M.TBA-ER 03:44 → M.2W 05:12 → M.ICU 06-04 11:44 → M.ORTHSURG 06-05 22:02
PROVIDERS: Family Medicine; Internal Medicine; Personal Emergency Response Attendant; ADMIT Internal Medicine
PROC: 0BH17EZ Insertion of Endotracheal Airway into Trachea, Via Natural or Artificial Opening (ICD-10-PCS; principal; 2019-06-04)
PROC: 02HV33Z Insertion of Infusion Device into Superior Vena Cava, Percutaneous Approach (ICD-10-PCS; principal; 2019-06-04)
PROC: 5A1935Z Respiratory Ventilation, Less than 24 Consecutive Hours (ICD-10-PCS; principal; 2019-06-04)
DX: A41.9 Sepsis, unspecified organism (principal); J96.00 Acute respiratory failure, unspecified whether with hypoxia or hypercapnia; J69.0 Pneumonitis due to inhalation of food and vomit; N17.0 Acute kidney failure with tubular necrosis; I21.4 Non-ST elevation (NSTEMI) myocardial infarction; I50.43 Acute on chronic combined systolic (congestive) and diastolic (congestive) heart failure; K81.0 Acute cholecystitis; T85.520A Displacement of bile duct prosthesis, initial encounter; F10.27 Alcohol dependence with alcohol-induced persisting dementia; G93.40 Encephalopathy, unspecified; F10.231 Alcohol dependence with withdrawal delirium; I11.0 Hypertensive heart disease with heart failure; I48.2 Chronic atrial fibrillation; I35.0 Nonrheumatic aortic (valve) stenosis; D53.9 Nutritional anemia, unspecified; R41.0 Disorientation, unspecified; I49.01 Ventricular fibrillation; Z60.2 Problems related to living alone; E87.6 Hypokalemia; Z95.5 Presence of coronary angioplasty implant and graft; Z98.49 Cataract extraction status, unspecified eye; Z87.891 Personal history of nicotine dependence; Y83.8 Other surgical procedures as the cause of abnormal reaction of the patient, or of later complication, without mention of misadventure at the time of the procedure; Y92.89 Other specified places as the place of occurrence of the external cause